=== PATIENT | male | born 1985 | race African-American/Black ===

== ENCOUNTER 2018-10-12 05:29 | Emergency (ER) | payer OTHER | END 2018-10-12 06:50 | disposition left against medical advice (07) | LOC: ER 05:29 | DX: Z53.21 Procedure and treatment not carried out due to patient leaving prior to being seen by health care provider (principal) ==

== ENCOUNTER 2021-10-19 20:11 | Emergency (ER) | payer OTHER ==
[~2021-10-19] VITALS: Ht 185.4 cm; Wt 68.7 kg
[2021-10-19] MEDS ORDERED: KETOROLAC 30MG/ML VIAL IV STA (20:44)
[2021-10-19] MEDS ORDERED: SODIUM CHLORIDE 0.9% 1,000 ML IV ONE (20:45)
[2021-10-19 21:29] LABS: BASOPHILS % 0.4 % (0.0-2.0); EOSINOPHILS % 0.3 % (0.0-5.0); HEMOGLOBIN. 14.8 g/dL (14.0-18.0); LYMPHOCYTES % 21.8 % (20.0-50.0); MEAN CORPUSCULAR HEMOGLOBIN 29.9 pg (28.0-32.0); MEAN CORPUSCULAR VOLUME 89.3 fL (80.0-94.0); MEAN PLATELET VOLUME 7.6 fl (7.4-10.4); MONOCYTES % 11.2 % (2.0-8.0); NEUTROPHILS % 66.3 % (40.0-76.0); PLATELET 266 x1000/uL (130-400); RED BLOOD CELL COUNT 4.93 mill/uL (4.7-6.1); RED CELL DISTRIBUTION WIDTH 13.8 % (11.6-14.6)
[2021-10-19 21:36] LABS: CHLORIDE 102 mEq/L (98-107)
[2021-10-19 21:44] LABS: ETHANOL BLOOD < 10 mg/dL
[2021-10-19] MEDS ORDERED: IOHEXOL-300 100 ML BOTTLE ONE (22:11)
[2021-10-19 22:39] LABS: CLARITY URINE CLEAR (CLEAR); COLOR URINE YELLOW (YELLOW); KETONES URINE TRACE (NEGATIVE); LEUKOCYTE ESTERASE URINE NEGATIVE (NEGATIVE); NITRITE URINE NEGATIVE (NEGATIVE); OCCULT BLOOD URINE TRACE (NEGATIVE); PH URINE 5.5 (4.5-8.0); PROTEIN URINE 1+ (NEGATIVE); SPECIFIC GRAVITY URINE 1.051 (1.005-1.030); UROBILINOGEN URINE 0.2 E.U./dL (0.2-1.0)
[2021-10-19 22:54] LABS: *AMPHETAMINES SCREEN URINE PRESUMTIVE POSITIVE (NEGATIVE); *BARBITURATES SCREEN URINE NEGATIVE (NEGATIVE); *BENZODIAZEPINES SCREEN URINE NEGATIVE (NEGATIVE); *COCAINE SCREEN URINE NEGATIVE (NEGATIVE); CANNABINOID URINE SCREEN PRESUMTIVE POSITIVE (NEGATIVE); METHADONE URINE SCREEN NEGATIVE (NEGATIVE); OPIATES URINE SCREEN NEGATIVE (NEGATIVE); PHENCYCLIDINE URINE SCREEN NEGATIVE (NEGATIVE)
[2021-10-20 08:09] VITALS: BP 103/63
== END 2021-10-20 08:49 | disposition home or self-care (01) ==
LOC: ER 20:11
DX: K52.9 Noninfective gastroenteritis and colitis, unspecified (principal); K40.90 Unilateral inguinal hernia, without obstruction or gangrene, not specified as recurrent; R31.9 Hematuria, unspecified
CPT/HCPCS: 36415; 74177; 80053; 80305; 80320; 81003; 83605; 83690; 85025; 96361; 96374; 99285; J1885; J7030; Q9967; G0480